=== PATIENT | female | born 1960 | race Caucasian/White ===

== ENCOUNTER → 2017-05-02 | Outpatient (CLI) | payer BC ==
[2017-05-02 10:05] LABS: THYROID STIMULATING HORMONE 4.23 uIu/ml (0.300-4.500)
== END | disposition home or self-care (01) ==
LOC: C.LAB1850 07:13
PROVIDERS: ATTEND Family Medicine
DX: E03.9 Hypothyroidism, unspecified (principal)

== ENCOUNTER → 2017-06-24 | Outpatient (CLI) | payer BC ==
[2017-06-27 06:26] LABS: HEPATITIS C RNA TMA QUAL Not detected
== END | disposition home or self-care (01) ==
LOC: C.LAB1850 07:32
PROVIDERS: ATTEND Family Medicine
DX: Z11.59 Encounter for screening for other viral diseases (principal); E03.9 Hypothyroidism, unspecified

== ENCOUNTER → 2017-07-15 | Outpatient (CLI) | payer BC | END | disposition home or self-care (01) | LOC: C.PAPS 18:15 | PROVIDERS: ATTEND Obstetrics & Gynecology | DX: Z01.419 Encounter for gynecological examination (general) (routine) without abnormal findings (principal) ==

== ENCOUNTER → 2017-07-19 | Outpatient (CLI) | payer BC ==
--- NOTE | 2017-07-19 15:37 | MAMMOGRAPHY REPORT ---
BILATERAL DIGITAL SCREENING MAMMOGRAM TOMOSYNTHESIS WITH CAD: 07/19/2017 CLINICAL HISTORY: Routine screening. Patient has no complaints. TECHNIQUE: Breast tomosynthesis in addition to standard 2D mammography was performed. Current study was also evaluated with a Computer Aided Detection (CAD) system. COMPARISON: Comparison is made to exams dated: 07/13/2016 mammogram, 01/11/2016 mammogram, 07/13/2015 mammogram, 07/01/2015 mammogram, 06/30/2014 mammogram, and 06/24/2013 mammogram - [facility]. BREAST COMPOSITION: There are scattered areas of fibroglandular density in both breasts. FINDINGS: No suspicious masses, calcifications, or areas of architectural distortion are noted in ei ther breast. There has been no significant interval change compared to prior exams. Small circumscri bed benign appearing mass in the right medial breast is stable compared to prior exams. Other bilate ral asymmetries are stable compared to prior exams. Circular markers josie skin moles on the left inf erior breast. IMPRESSION: ACR BI-RADS CATEGORY 2: BENIGN There is no mammographic evidence of malignancy. A 1 year screening mammogram is recommended. The pa tient will receive written notification of the results. Approximately 10% of breast cancers are not detected with mammography. A negative mammographic report should not delay biopsy if a clinically suggestive mass is present. Trista Snyder M.D. /:07/19/2017 08:35:23 See Supervisor: Lynnette Tavarez RT(R)(M)(BD), [facility] letter sent: Normal 1/2 BI-RADS Code: ACR BI-RADS Category 2: Benign
== END | disposition home or self-care (01) ==
LOC: C.MAMM 07:44
PROVIDERS: ATTEND Obstetrics & Gynecology
DX: Z12.31 Encounter for screening mammogram for malignant neoplasm of breast (principal)

== ENCOUNTER 2025-05-14 05:24 | Observation (INO) ==
--- NOTE | 2025-04-08 09:47 | PAT Medication Instructions ---
Medication Instructions Date of Service April 08, 2025 Home Medications Medication Instructions Recorded Synthroid 75 mcg tablet 75 mcg PO QAM #90 tabs 02/17/25 (levothyroxine) multivitamin 1 tab PO QPM omega-3 fatty acids 1,000 mg PO QPM Synthroid 75 mcg tablet (levothyroxine) 75 mcg PO QAM B-complex with vitamin C 1 tab PO QAM aspirin 81 mg tablet,delayed release 81 mg PO HS biotin 1 mg capsule 0 mg PO DAILY calcium 315 mg (as citrate)-vitamin D3 6.25 mcg (250 unit) tablet (Citracal + Vitamin D Maximum) 1 tab PO BID cholecalciferol (vitamin D3) 50 mcg (2,000 unit) capsule (Vitamin D3) 50 mcg PO QAM collagen 1 dose PO QPM iron 50 mg iron tablet 2 tab PO DAILY magnesium 250 mg tablet 250 mg PO HS sumatriptan succinate 100 mg tablet 100 mg PO UD PRN turmeric root extract 500 mg tablet 500 mg PO QPM vitamin K2 100 mcg capsule 100 mcg PO QAM zinc 2 tab PO HS Continue as directed sumatriptan succinate 100 mg tablet 100 mg PO UD PRN(if needed) ASK your prescriber and surgeon aspirin 81 mg tablet,delayed release 81 mg PO HS STOP taking 2 weeks before surgery (or as soon as possible if surgery is within 2 weeks) omega-3 fatty acids 1,000 mg PO QPM turmeric root extract 500 mg tablet 500 mg PO QPM vitamin K2 100 mcg capsule 100 mcg PO QAM biotin 1 mg capsule 0 mg PO DAILY collagen 1 dose PO QPM DO NOT take the morning of surgery B-complex with vitamin C 1 tab PO QAM calcium 315 mg (as citrate)-vitamin D3 6.25 mcg (250 unit) tablet (Citracal + Vitamin D Maximum) 1 tab PO BID cholecalciferol (vitamin D3) 50 mcg (2,000 unit) capsule (Vitamin D3) 50 mcg PO QAM iron 50 mg iron tablet 2 tab PO DAILY Take morning of surgery With a small sip of water, OTHERWISE NOTHING TO EAT OR DRINK AFTER MIDNIGHT: Synthroid 75 mcg tablet (levothyroxine) 75 mcg PO QAM Take evening before surgery multivitamin 1 tab PO QPM calcium 315 mg (as citrate)-vitamin D3 6.25 mcg (250 unit) tablet (Citracal + Vitamin D Maximum) 1 tab PO BID magnesium 250 mg tablet 250 mg PO HS zinc 2 tab PO HS Other Notes If you have any questions please call us at [phone] or [phone] or [phone] or [phone]
--- NOTE | 2025-04-14 12:58 | Anesthesiology Consultation ---
Date of Service April 14, 2025 Assessment & Plan (1) Encounter for pre-operative examination: - Outpatient joint assessment: Patient is currently scheduled for inpatient pathway. If re-evaluated and patient/surgeon requests outpatient pathway, patient is acceptable candidate for outpatient joint program from anesthesia standpoint pending surgeon's office assessment of pt motivation/support/completion of same day joint program preop requirements. Chart Review Chart Review: Acceptable Risk for Surgery and Patient seen in Pre Admission Testing Teaching & Discussion Pre-Anesthesia Teaching/Discussion Notes: Instructed NPO after midnight before surgery, except medications with 15 cc of water. Medication instructions provided according to the PAT guidelines. History Surgery Operation Date: 05/14/25 10:00 Proposed Procedures p Right Anterior Total Hip Arthroplasty - Mainor Harden, Height/Weight Height: 5 ft 10 in Weight: 91.3 kg Allergies Allergy/AdvReac Type Severity Reaction Status Date / Time Influenza Virus Vaccines Allergy Severe VINCENT'S Verified 04/07/25 15:04 PALSY Medications Home Medications Medication Instructions Recorded Confirmed Last Taken multivitamin 1 tab PO QPM 07/02/19 04/07/25 07/07/21 omega-3 fatty acids 1,000 mg PO QPM 07/19/21 04/07/25 07/07/21 Synthroid 75 mcg tablet 75 mcg PO QAM #90 tabs 02/17/25 04/07/25 Unknown (levothyroxine) B-complex with vitamin C 1 tab PO QAM 04/07/25 04/07/25 Unknown aspirin 81 mg tablet,delayed 81 mg PO HS 04/07/25 04/07/25 Unknown release biotin 1 mg capsule 0 mg PO DAILY 04/07/25 04/07/25 Unknown calcium 315 mg (as 1 tab PO BID 04/07/25 04/07/25 Unknown citrate)-vitamin D3 6.25 mcg (250 unit) tablet (Citracal + Vitamin D Maximum) cholecalciferol (vitamin D3) 50 50 mcg PO QAM 04/07/25 04/07/25 Unknown mcg (2,000 unit) capsule (Vitamin D3) collagen 1 dose PO QPM 04/07/25 04/07/25 Unknown iron 50 mg iron tablet 2 tab PO DAILY 04/07/25 04/07/25 Unknown magnesium 250 mg tablet 250 mg PO HS 04/07/25 04/07/25 Unknown sumatriptan succinate 100 mg tablet 100 mg PO UD PRN migraines 04/07/25 04/07/25 Unknown turmeric root extract 500 mg tablet 500 mg PO QPM 04/07/25 04/07/25 Unknown vitamin K2 100 mcg capsule 100 mcg PO QAM 04/07/25 04/07/25 Unknown zinc 2 tab PO HS 04/07/25 04/07/25 Unknown Past Medical History Medical History History of colon polyps History of COVID-19 (~2020) denies hospitalization-symptoms resolved History of hypothyroidism 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 Exercise / Class Metabolic Activity III < 4 Walking/Shop/Light housework (denies chest discomfort or shortness of breath with usual activities-unable to do a flight of stairs normally over past year due to hip pain) Past Family History Family History Mother Congestive heart failure Grandfather (Maternal) Peripheral vascular disease Grandfather (Paternal) No problems noted. Aunt No problems noted. Father No problems noted. Other Diabetes No family history of adverse response to anesthesia No family history of bleeding disorder Denies family history of Ovarian cancer Prostate cancer Myocardial infarction Breast cancer Colorectal cancer Past Surgical History Surgical History History of colonoscopy (2020) multiple Past Anesthesia History No Hx of Anesthesia Complications and No Family Hx of Anesthesia Complications History of PONV History of PONV and Hx of Motion Sickness Social History Smoking Status: Never smoker Do You Dip or Chew Tobacco: No Hx Alcohol Use: No alcohol intake frequency: holidays/special occasions only Hx Substance Use: No substance use type: does not use Review of Systems Patient denies chest pain, shortness of breath, dyspnea on exertion, snoring, witnessed apneas, reflux, fever, chills, cough, wheezing, or palpitations. Physical Exam Vital Signs Vitals BP 106/67 P 64 TEMP 98.1 SP02 98% on RA RESP 18 Physical Patient resting comfortably in chair in no acute distress, alert and oriented, responding appropriately throughout visit Full cervical extension range of motion without pain TMD 3.5 finger breadths Mallampati Score 2 Dentition: intact, denies chipped or loose teeth, caps/crowns, implants or bridges Lungs: normal respiratory effort. Good air movement, clear throughout to auscultation, no adventitious breath sounds Cardiac: regular rate and rhythm, no murmurs noted Carotid arteries: negative bruit bilat Lab Results Anesthesia Preop Results Results Anesthesia Widget: WBC 5.27 K/ul (4.8-10.8) 04/14/25 Hgb 12.9 g/dl (12.0-16.0) 04/14/25 Hct 39.2 % (37.0-47.0) 04/14/25 Plt 286 K/uL (130-400) 04/14/25 Na 140 mmol/L (136-145) 04/14/25 K 4.3 mmol/L (3.5-5.1) 04/14/25 Cl 105 mmol/L (98-107) 04/14/25 CO2 31 mmol/L (21-32) 04/14/25 BUN 16 mg/dl (6-23) 04/14/25 Creat 0.71 mg/dl (0.6-1.2) 04/14/25 Glucose Level 89 mg/dl (70-99(Fasting)) 04/14/25 PT 10.3 Seconds (9.0-12.0) 04/14/25 PTT 28 Seconds (21-31) 04/14/25 INR 0.9 (0.9-1.1) 04/14/25 Blood Type O Positive 04/14/25 Antibody Screen NEGATIVE 04/14/25 Testing Electrocardiogram Date: 04/14/25 NSR, rate 62 bpm Chest X-Ray Date: 04/14/25 No acute findings.
[2025-05-14] MEDS: ACETAMINOPHEN 500 MG TAB PO SCH ×2 (06:00→13:47)
[2025-05-14] MEDS: LR 500ML BOLUS, THEN 15ML/HR IV SCH (06:00)
[2025-05-14] MEDS: FAMOTIDINE 20 MG TAB PO SCH (06:00)
[2025-05-14] MEDS: GABAPENTIN 300 MG CAP PO SCH (06:00)
[2025-05-14] MEDS: dexAMETHasone**PF** 10 MG/ML VIAL IV SCH (06:00)
[2025-05-14] MEDS: LR 60ML/HR IV SCH (06:01)
[2025-05-14] MEDS ORDERED: BUPIVACAINE 0.5 % 5 MG/1 ML PF 10ML VIAL ONE (06:13)
[2025-05-14] MEDS ORDERED: ATROPINE SULFATE 0.1 MG/ML 10ML SYR IV PRN (06:25)
[2025-05-14] MEDS ORDERED: ONDANSETRON INJ 2 MG/ML 2 ML VIAL IV PRN ×2 (06:25→10:32)
[2025-05-14] MEDS ORDERED: PROMETHAZINE HCL 6.25 MG in SODIUM CHLORIDE 0.9% 50 ML IV PRN (06:25)
[2025-05-14] MEDS ORDERED: MIDAZOLAM HCL 1 MG/ML 2ML VIAL ONE (06:47)
--- NOTE | 2025-05-14 06:53 | History & Physical Bridge Note ---
Date of Service May 14, 2025 History & Physical Bridge Note I have examined the patient, reviewed the History & Physical and in the interval since the performance of the History & Physical I have noted the following changes of clinical significance: no changes noted
[2025-05-14] MEDS: TRANEXAMIC ACID 1,000 MG **IV Pre-op IV SCH (06:57)
[2025-05-14] MEDS ORDERED: LIDOCAINE 2% 2 ML VIAL/AMP(20MG/ML) INFIL ONE (07:13)
[2025-05-14] MEDS ORDERED: PROPOFOL IV EMULSION 10 MG/ML 100 ML VIAL IV ONE (07:13)
[2025-05-14] MEDS ORDERED: PHENYLEPHRINE 100MCG/ML 5ML SYR ONE (07:21)
[2025-05-14] MEDS: ORTHO JOINT ANESTHETIC ONE (07:36)
[2025-05-14] MEDS: ROPIV 0.5% 246mg, Ketorolac 30mg, EPINEPHrine 0.5mg in NSS INFIL SCH (07:44)
--- NOTE | 2025-05-14 08:05 | Operative Report ---
PG Post Operative Report Pre & Post Diagnosis Operation Date: 05/14/25 07:00 Pre-Op Diagnosis: Osteoarthritis of Right Hip Post-Op Diagnosis: Osteoarthritis of Right Hip I identified the patient and participated in the time-out.: Yes Procedure Operation Date: 05/14/25 07:00 Actual Procedures p Right Anterior Total Hip Arthroplasty(Right) - Mainor Harden DO Surgeon Mainor Harden DO Casino Floorperson Farzad Valdovinos PA-C Estimated Blood Loss 200 Findings Consistent with Post-Op Diagnosis Specimens Right femoral head Description of Procedure Implants used I used a ZimmerBiomet total hip arthroplasty system with a size 2 high offset Z1 stem, a 48 mm G7 cup, an E1 polyethylene liner, a 32 mm ceramic head with a +3.5 neck. Gerda arrived at the hospital for the above procedure. She was seen in the preoperative holding area and the operative extremity was identified and signed. She was given a spinal anesthetic, a preoperative antibiotic, and TXA. She was then taken back to the operating room and laid on the table in the supine position. She was given basic sedation. The operative leg was secured to a Puristst leg positioner. The hip was then prepped and draped in sterile fashion. A timeout was done and the patient and the operative extremity was properly identified. An anterior approach was used. Dissection was taken down through the fascia and the tensor muscle belly was retracted laterally and the rectus was retracted medially. The circumflex vessels were identified and ligated. The capsule was then incised and tagged for later repair. The femoral neck was then cut and the femoral head was removed. The acetabulum was exposed. Time was spent doing a complete circumferential labral release. Sequential reaming of the acetabulum up to a size 47 reamer was done. Final reamings were done under fluoroscopy to ensure appropriate version. A Biomet 48 mm G7 cup was then impacted into place. The E1 polyethylene liner was then snapped into place. Surrounding soft tissues were then injected with 100 cc of an orthopedic pain control cocktail. The proximal femur was then exposed. Sequential broaching up to a size 2 broach was done. Off that broach a size 32 head with a +3.5 neck was trialed. The hip was reduced and fluoroscopic images showed anatomic alignment of the implants in acceptable length. The broach was removed. The final size 2 high offset Z1 stem was then impacted into place. A ceramic 32mm head with a +3.5 neck was then impacted onto the stem and the hip was reduced. Final fluoroscopic images showed anatomic alignment of the hip. The capsule was then closed with #1 Vicryl suture. A dilute betadyne lavage was then done for 3 minutes. The joint was then irrigated with normal saline solution. The fascia was closed with #1 PDS suture. Skin was closed with 2-0 Vicryl, Miller Zipline, and a Silverlon dressing. She was then transferred to a hospital bed and taken to the post anesthesia care unit in stable condition. She tolerated the procedure well. Farzad Valdovinos PA-C, was present for the entire procedure. He was critical for patient positioning, prepping, draping, retraction exposure, wound closure and application of sterile dressing. I attest to the content of the Intraoperative Record and any orders documented therein. Any exceptions are noted below.
--- NOTE | 2025-05-14 09:26 | XRay Report ---
XR hip 1V RT w pelvis CLINICAL HISTORY: IN PACU - Post Surgical COMPARISON: None FINDINGS: Right hip prosthesis shows no hardware complication. There is expected soft tissue gas. Th ere are mild degenerative changes at the left hip. IMPRESSION: Unremarkable postoperative exam. ACT 112: Negative or not required by law. Electronically signed by: Jordon Stock M.D. 05/14/2025 9:25 AM
--- NOTE | 2025-05-14 09:30 | Fluoroscopy Report ---
FL hip RT 1V CLINICAL HISTORY: RT ANTERIOR COMPARISON STUDY: None FLUOROSCOPY TIME: 13 seconds FLUOROSCOPY IMAGES: 1 EXPOSURE DOSE: 1.4 mGy FINDINGS: Fluoroscopy was provided for right hip prosthesis. IMPRESSION: Intraoperative fluoroscopy. ACT 112: Negative or not required by law. Electronically signed by: Jordon Stock M.D. 05/14/2025 9:29 AM
[2025-05-14] MEDS ORDERED: HYDROmorphone INJ 0.5 MG/0.5 ML SYR IV PRN (10:32)
[2025-05-14] MEDS ORDERED: NALOXONE HCL 0.4 MG/1 ML VIAL/CARP IV PRN (10:32)
[2025-05-14] MEDS ORDERED: MAGNESIUM HYDROXIDE SUSP 30 ML UDC PO PRN (10:32)
[2025-05-14] MEDS ORDERED: METOCLOPRAMIDE HCL INJ 5 MG/ML 2 ML VIAL IV PRN (10:32)
[2025-05-14] MEDS: SODIUM CHLORIDE 0.9% 1,000 ML IV SCH (10:34)
[2025-05-14] MEDS: DOCUSATE SODIUM 100 MG CAP PO SCH (10:45)
[2025-05-14] MEDS: LEVOTHYROXINE SODIUM 75 MCG TABLET PO SCH (10:45)
[2025-05-14] MEDS: MULTIVITAMIN TAB PO SCH (10:46)
[2025-05-14] MEDS: KETOROLAC TROMETHAMINE 15 MG/ML VIAL IV SCH (12:26)
--- NOTE | 2025-05-14 15:20 | Anesthesiology Progress Note ---
Date of Service May 14, 2025 Anesthesia Post Procedure Vital Signs Vital Signs: Temp Pulse Pulse Resp BP Pulse Ox O2 Del Method 05/14/25 13:25 36.4 C L 92 H 16 133/78 99 Room Air 05/14/25 12:22 36.3 C L 90 16 130/77 97 Room Air 05/14/25 11:25 36.4 C L 84 17 131/81 98 Room Air 05/14/25 10:55 36.4 C L 82 16 121/73 97 Room Air 05/14/25 10:25 36.9 C 82 18 129/78 95 Room Air 05/14/25 10:00 36.3 C L 82 19 141/72 H 96 Room Air 05/14/25 09:45 81 21 133/65 94 Room Air 05/14/25 09:30 75 19 103/76 94 Room Air 05/14/25 09:20 79 17 133/73 97 Room Air 05/14/25 09:10 78 16 129/79 94 Room Air 05/14/25 09:00 80 22 128/67 96 Room Air 05/14/25 08:50 75 17 135/67 96 Room Air 05/14/25 08:40 75 20 142/55 H 100 Oxymask 05/14/25 08:34 36.3 C L 79 23 130/70 100 Oxymask 05/14/25 05:50 36.7 C 86 20 124/76 96 Room Air O2 Flow Rate 05/14/25 13:25 05/14/25 12:22 05/14/25 11:25 05/14/25 10:55 05/14/25 10:25 05/14/25 10:00 05/14/25 09:45 05/14/25 09:30 05/14/25 09:20 05/14/25 09:10 05/14/25 09:00 05/14/25 08:50 05/14/25 08:40 4 05/14/25 08:34 8 05/14/25 05:50 Transfer of Care Handoff Completed per policy Notes Mental Status: alert / awake / arousable and participated in evaluation Patient Amnestic to Procedure: Yes Nausea / Vomiting: adequately controlled Pain: adequately controlled Airway Patency, RR, SpO2: stable & adequate BP & HR: stable & adequate Hydration State: stable & adequate Neuraxial Anesthesia: was administered and sensory block is resolving Anesthetic Complications: no major complications apparent and Pt Satisfied with anesthetic care
[2025-05-14] MEDS: SENNA 8.6 MG TAB PO SCH (20:22)
[2025-05-14] MEDS: ASPIRIN 81 MG ECTAB PO SCH (20:22)
[2025-05-15 04:17] VITALS: TEMP 97.9
[2025-05-15 07:53] VITALS: BP 120/71; PULSE 77; RESP 16; O2SAT 98
--- NOTE | 2025-05-15 08:55 | Orthopedic Progress Note ---
Date of Service May 15, 2025 Assessment & Plan (1) Status post right hip replacement: Overall she is doing fairly well. She is not having much pain in the right hip. She will be seen by physical therapy today for ambulation and range of motion exercises. She is on aspirin for DVT prophylaxis. She can be discharged to home later today. She will follow-up with orthopedics in 2 weeks. Siddhartha Lorenz was seen and examined at bedside this morning. Overall she is doing very well. She is not having much pain in the right hip. She had some pain last night but is better today. She has no other complaints.. Review of Systems All systems reviewed & are unremarkable except as noted in HPI & below. Physical Exam On physical exam of the right hip, the dressing is clean and dry. Her leg is out in full extension. She has active dorsiflexion plantarflexion of her right ankle.. Results & Data Results & Data Laboratory Results . Diagnostic Findings Postoperative x-rays of the right hip show the prosthesis to be in anatomic alignment without any evidence of fracture, dislocation, or loosening.. PG Care Time/CCT Total # of Minutes Spent Total Time Spent with Patient: Total time spent is greater than 50% in coordination of care (as documented) at patient's floor/unit and/or counseling patient: Coding Level of Care Code 38404 Post Operative Follow-Up Diagnoses Status post right hip replacement Z96.641
== END 2025-05-15 13:02 | disposition home or self-care (01) ==
LOC: ASU 05:24 → 3E 05:24